=== PATIENT | female | born 1945 | race Caucasian/White ===

== ENCOUNTER 2017-10-23 02:41 | Inpatient (IN) | payer OTHER ==
[~2017-10-23] VITALS: Ht 162.6 cm; Wt 90.7 kg
[~2017-10-23 02:41] MED LIST: APAP500 PO; CALCIUM LACTAT100 MG; CO Q-1010 MG PO; ESGIC; ESGIC PLUS PO; EXCEDRIN CAPLE1 EACH PO; FLEXERIL PO; Fish Oil 1 PO; IBUPROFEN 200200 M1 PO; L-LYSINE500 M1 PO; MIRALAX17 GM PO; MIRALAX255 GM PO; MULTIVITAMINS PO; OSTEO BI-FLEX1 EAC1 PO; POTASSIUM GLUCO99 M1 PO; PRILOSEC 20 MG20 MG PO; TYLOPHEN500 MG PO; VICODIN 5-5001 EACH; VITAMIN D31000 UNI2 PO; ZOCOR 20 MG TAB20 M1 PO
[2017-10-23 02:42] VITALS: BP 160/84
[2017-10-23 03:04] LABS: ABSOLUTE EOSINOPHILS 0.1 thou/uL (0.0-0.7); ABSOLUTE LYMPHOCYTES 1.2 thou/uL (0.8-5.3); ABSOLUTE MONOCYTES 0.5 thou/uL (0.0-1.2); ABSOLUTE NEUTROPHILS 9.1 thou/uL (1.6-8.1); BASOPHILS 0.4 %; EOSINOPHILS 0.6 %; HEMATOCRIT 42.2 % (37.0-47.0); HEMOGLOBIN 14.3 gm/dL (12.0-15.0); MCHC 33.8 g/dL (28.0-37.0); MCV 85.9 fL (80.0-100.0); MONOCYTES 4.7 %; MPV 7.2 fl. (7.2-11.1); NUCLEATED RBCS 0 /100WBC; PLATELET COUNT* 304 thou/uL (150-400); POLYS 83.3 %; RBC 4.92 mil/uL (4.20-5.00); RDW-CV 13.3 % (10.5-14.5)
[2017-10-23 03:37] LABS: ANION GAP 11 mmol/L (7-16); BUN 10 mg/dL (7-18); CALCIUM 8.9 mg/dL (8.5-10.1); CHLORIDE 100 mmol/L (98-107); CO2 29 mmol/L (21-32); CREATININE 0.8 mg/dL (0.6-1.3); GLUCOSE 147 mg/dL (70-99); POTASSIUM 3.8 mmol/L (3.5-5.1); SODIUM 140 mmol/L (136-145)
[2017-10-23 03:44] LABS: ALBUMIN 3.8 g/dL (3.4-5.0); ALKALINE PHOSPHATASE 84 U/L (46-116); LIPASE 115 U/L (73-393); SGOT 33 U/L (15-37); SGPT 36 U/L (30-65); TOTAL BILIRUBIN 0.6 mg/dL (<0.1-1.0); TOTAL PROTEIN 7.3 g/dL (6.4-8.2); TROPONIN-I LEVEL <0.06 ng/mL (<0.06)
[2017-10-23 03:56] LABS: URINE BILIRUBIN NEGATIVE (Negative); URINE BLOOD 2+ (Negative); URINE CLARITY CLEAR; URINE COLOR YELLOW; URINE GLUCOSE-RANDOM NEGATIVE (Negative); URINE KETONES 1+ (Negative); URINE LEUKOCYTES-REFLEX NEGATIVE (Negative); URINE NITRITE-REFLEX NEGATIVE (Negative); URINE PROTEIN NEGATIVE (Negative); URINE SPECIFIC GRAVITY 1.015 (1.005-1.030); URINE UROBILINOGEN 0.2 E.U./dl (0.2-1.0)
[2017-10-23 04:09] LABS: CASTS None Seen /LPF (None Seen); CRYSTALS None Seen /LPF (None Seen); MUCUS 0-3 Light strn/LPF (None Seen); SQUAMOUS 0-3 Few /LPF (0-3); URINE WBC-REFLEX 0-5 Rare /HPF (0-5)
--- NOTE | 2017-10-23 04:17 | NUR ---
back from cat scan.
[2017-10-23 05:59] VITALS: BP 142/78
--- NOTE | 2017-10-23 08:03 | NUR ---
PATIENT ARRIVED TO UNIT AT 0605. ORIENTED TO ROOM AND STAFF. VITALS STABLE. RA. EDUCATED ABOUT FALL PREVENTION. UP SBA TO BSC. NG TO LIS. PHYSICIAN CONTACTED FOR PAIN MEDICATION, NO ORDERS YET RECEIVED. DAUGHTER AT BEDSIDE. STRESS INCONTIENT WHEN DRY HEAVING. SKIN INTACT. INSTRUCTED TO CALL FOR ASSISTANCE. NURSING WILL CONTINUE TO MONITOR.
[2017-10-23 08:04] VITALS: BP 166/87
--- NOTE | 2017-10-23 13:53 | EKG ---
[place] [address] ELECTROCARDIOGRAM REPORT Name: ANUP ALEX Room: [address] IN .R.#: [id number] Admission: 10/23/17 Attend Phys: Charli Echeverria Discharge: Date of : 45 Report #: [id number] THIS REPORT FOR: //name// [facility] [place] ED Test Date: 2017-10-23 Test Time: 03:23:45 Pat Name: ANUP ALEX Department: Room: [facility] Gender: F Crisis Counselor: FAHEEM : 1945 Requested By: Alex Manzano Order Number: [id number] MD: Sean Lquue Measurements Intervals [place] Rate: 88 P: 27 [place]: 174 QRS: 153 QRSD: 103 T: 36 QT: 405 QTc: 490 Interpretive Statements Sinus rhythm Right ventricular hypertrophy Borderline prolonged QT interval Compared to ECG 03/17/2017 10:23:35 no change Electronically Signed On 10-23-2017 13:53:49 CDT by Sean Luque [email or web address] <ELECTRONICALLY SIGNED> By: Sean Luque MD, [facility] 10/23/17 [id number] [id number] Sean Luque MD, [facility] /EPI
--- NOTE | 2017-10-23 15:23 | NUR ---
PT.LIVES WITH HER . HE IS DISABLED SO SHE CARES FOR HIM. SHE USES A CANE AT TIMES. SHE IS INDEPENDENT. STILL DRIVES-LIMITED DRIVING,SHE SAID. SHE COOKS,SHOPS,CLEANS,,ETCH. NO HX OF OR SNF. SHE HOPES HER PROBLEM CAN BE TAKEN CARE OF CONSERVATIVELY. DAUGHTER IS SUPPORTIVE AND AT BEDSIDE.
[2017-10-23 15:58] VITALS: BP 150/63
--- NOTE | 2017-10-23 16:35 | NUR ---
ASSUMED CARE OF PATIENT AFTER MORNING REPORT. ALERT AND ORIENTED X4. ASSESSMENT COMPLETED AND CHARTED. PATIENTS NG TUBE IS IN PLACE, PATENT AND ON LOW INTERMITTENT SUCTION. PAIN AND NAUSEA HAVE BEEN MANAGED WITH MEDICATIONS. FLUIDS INFUSING ORDRED. PATIENTS DAUGHTER HAS BEEN AT BEDSIDE THROUGHOUT SHIFT. PATIENT RESTING COMFORTABLY IN BED AT THIS TIME. HOURLY ROUNDS MAINTAINED. CALL LIGHT IS WITHIN REACH. NURSING WILL CONTINUE TO MONITOR.
[2017-10-23 20:00] VITALS: BP 143/69
[2017-10-24 04:07] VITALS: BP 126/44
[2017-10-24 04:20] LABS: ABSOLUTE LYMPHOCYTES 1.4 thou/uL (0.8-5.3); ABSOLUTE MONOCYTES 0.7 thou/uL (0.0-1.2); ABSOLUTE NEUTROPHILS 4.8 thou/uL (1.6-8.1); BASOPHILS 0.5 %; EOSINOPHILS 0.7 %; HEMATOCRIT 37.6 % (37.0-47.0); HEMOGLOBIN 12.6 gm/dL (12.0-15.0); LYMPHOCYTES 20.3 %; MCH 29.1 pg (26.0-34.0); MCHC 33.5 g/dL (28.0-37.0); MCV 86.9 fL (80.0-100.0); MONOCYTES 9.9 %; MPV 7.1 fl. (7.2-11.1); NUCLEATED RBCS 0 /100WBC; PLATELET COUNT* 262 thou/uL (150-400); POLYS 68.6 %; RBC 4.32 mil/uL (4.20-5.00); RDW-CV 13.2 % (10.5-14.5); WBC 6.9 thou/uL (4.0-11.0)
--- NOTE | 2017-10-24 04:29 | NUR ---
PATIENT ALERT AND ORIENTED. VITALS STABLE. RA. NG IN PLACE TO LIS. NPO. NEW IV PLACED IN LEFT FOREARM, FLUIDS INFUSING PER ORDER. UP SBA TO BSC. FENTANYL AND ZOFRAN GIVEN X 2. HOURLY ROUNDS. NURSING WILL CONTINUE TO MONITOR.
[2017-10-24 05:40] LABS: CALCIUM 8.3 mg/dL (8.5-10.1); CREATININE 0.7 mg/dL (0.6-1.3); POTASSIUM 3.9 mmol/L (3.5-5.1)
[2017-10-24 05:41] LABS: MAGNESIUM 2.3 mg/dL (1.8-2.4)
[2017-10-24 08:00] VITALS: BP 143/76
--- NOTE | 2017-10-24 12:00 | NUR ---
PATIENT CALLED NURSE TO ROOM. STATED SHE NOTICED HER RIGHT FOOT WAS MORE SWOLLEN THAN THE LEFT. AFTER EXAMINATION THIS NURSE DID VERIFY RIGHT FOOT IS MINIMALLY MORE SWOLLEN THAN THE LEFT, BUT FEELS NO OTHER ABNORMALITIES OR DEFORMITIES. PATIENT IS NOT COMPLAINING OF PAIN TO RIGHT FOOT. NURSING WILL CONTINUE TO MONITOR.
[2017-10-24 16:16] VITALS: BP 137/74
--- NOTE | 2017-10-24 16:20 | NUR ---
ASSUMED CARE OF PATIENT AFTER REPORT THIS MORNING. PATIENT AWAKE, ALERT, AND ORIENTED APPROPRIATELY. PHYSICAL ASSESSMENT COMPLETED AND CHARTED. COMPLAINED OF PAIN THIS SHIFT. GIVEN PRN AND SCHEDULED MEDICATIONS, SEE EMAR FOR DOCUMENTATION. VITAL SIGNS STABLE. OXYGEN SATURATION WITHIN NORMAL LIMITS ON ROOM AIR. NG TUBE IN PLACE TO LOW INTERMITTENT SUCTION. PRODUCING YELLOWISH BROWN GASTRIC FLUID. COMPLETED ABDOMINAL SERIES TODAY, SEE RESULTS IN DAILY REVIEW. PATIENT TRANSFERS AND AMBULATES WITH ASSISTANCE FROM STAFF. USES CALL LIGHT APPROPRIATELY. DENIES NEEDS AT THIS TIME. CALL LIGHT WITHIN REACH. NURSING WILL CONTINUE TO MONITOR.
[2017-10-24 20:15] VITALS: BP 144/80
[2017-10-25] VITALS: BP 137/55
[2017-10-25 03:55] LABS: ABSOLUTE EOSINOPHILS 0.1 thou/uL (0.0-0.7); ABSOLUTE LYMPHOCYTES 1.5 thou/uL (0.8-5.3); ABSOLUTE MONOCYTES 0.4 thou/uL (0.0-1.2); BASOPHILS 0.8 %; EOSINOPHILS 1.8 %; HEMATOCRIT 34.4 % (37.0-47.0); HEMOGLOBIN 11.4 gm/dL (12.0-15.0); LYMPHOCYTES 29.6 %; MCH 28.6 pg (26.0-34.0); MCHC 33.1 g/dL (28.0-37.0); MCV 86.6 fL (80.0-100.0); MONOCYTES 8.7 %; MPV 6.9 fl. (7.2-11.1); NUCLEATED RBCS 0 /100WBC; PLATELET COUNT* 237 thou/uL (150-400); POLYS 59.1 %; RBC 3.97 mil/uL (4.20-5.00)
[2017-10-25 04:11] LABS: CALCIUM 7.9 mg/dL (8.5-10.1); CREATININE 0.5 mg/dL (0.6-1.3); POTASSIUM 3.2 mmol/L (3.5-5.1)
--- NOTE | 2017-10-25 05:49 | NUR ---
UP WITH STAND BY ASSIST TO BEDSIDE COMMODE. ALERT AND ORIENTED X4. IVF INFUSING WITHOUT DIFFICULTY. NG PATENT WITH BROWN DRAINAGE. NO C/O N/V. IV AND PO PAIN MEDICATION GIVEN FOR ARTHRITIC AND ABD PAIN. PATIENT STATES SHE IS PASSING GAS. CALL LIGHT WITHIN REACH.
[2017-10-25 09:00] VITALS: BP 141/73
[2017-10-25 16:19] VITALS: BP 153/67
--- NOTE | 2017-10-25 21:12 | NUR ---
ASSUMED CARES OF PT AT 0700. PT IN BED, BED IN LOW LOCKED POSITION, CALL BUTTON AND PERSONAL ITEMS IN PT REACH. FALL PRECAUTIONS IN PLACE. PT A&O X4, VSS ON RA, AFEBRILE, PERRLA, SKIN INTACT, EDEMA IN RIGHT FOOT AND ANKLE 1+. NG TUBE LOW INTERMITTANT SUCTION, DARK BROWN LIQUID PRESENT IN CANNISTER. IV IN LEFT WRIST PATENT TO FLUIDS INFUSING. PT UP SBA, PT WALKED WITH WALKER AND PHYSICAL THERAPY. LCTAB, HRRR PER AUSCULTATION. PULSES RADIAL AND PEDAL WNL. PT DENIES N/V. PAIN PARTIALLY CONTROLLED WITH PAIN MEDS. ICE PACKS FOR KNEE DISCOMFORT. SCD'S WORN WHILE IN BED. ABD SOFT TO PALPATE. PT NPO THIS SHIFT, ICE CHIPS IN SMALL AMOUNTS. PT VERY NEEDY, USES CALL BUTTON OFTEN FOR ASSISTANCE AND WITH QUESTIONS. HOURLY ROUNDING COMPLETED. PT PROGRESSING TOWARDS GOAL. REPORT TO PUSH CONNECTOR ASSEMBLER FOR CONTINUED CARES. PT STABLE AT SHIFT CHANGE. TALKATIVE, SMILING. DIET UPGRADED TO CLEAR LIQUID PER DR. FUNK.
[2017-10-26] VITALS: BP 137/67
--- NOTE | 2017-10-26 05:32 | NUR ---
ALERT AND ORIENTED X4. TRANSFERS SELF TO BEDSIDE COMMODE WITHOUT DIFFICULTY. N/G CLAMPED WITH NO C/O N/V. TAKING SMALL SIPS OF CLEAR LIQUIDS. PATIENT STATED SHE HAS PASSED SOME GAS. USING IV PAIN MEDICATION TO HELP CONTROL ARTHRITIC PAIN. CALL LIGHT WITHIN REACH.
[2017-10-26 08:06] VITALS: BP 174/78
[2017-10-26 08:28] LABS: ABSOLUTE EOSINOPHILS 0.1 thou/uL (0.0-0.7); ABSOLUTE LYMPHOCYTES 1.2 thou/uL (0.8-5.3); ABSOLUTE MONOCYTES 0.4 thou/uL (0.0-1.2); BASOPHILS 0.8 %; EOSINOPHILS 2.1 %; HEMATOCRIT 38.4 % (37.0-47.0); LYMPHOCYTES 21.2 %; MCH 28.8 pg (26.0-34.0); MCHC 33.9 g/dL (28.0-37.0); MCV 85.1 fL (80.0-100.0); MONOCYTES 6.9 %; NUCLEATED RBCS 0 /100WBC; PLATELET COUNT* 286 thou/uL (150-400); RBC 4.51 mil/uL (4.20-5.00); RDW-CV 12.8 % (10.5-14.5); WBC 5.9 thou/uL (4.0-11.0)
[2017-10-26 08:37] LABS: CALCIUM 8.7 mg/dL (8.5-10.1); CREATININE 0.6 mg/dL (0.6-1.3); MAGNESIUM 2.1 mg/dL (1.8-2.4); PHOSPHORUS* 1.9 mg/dL (2.5-4.9); POTASSIUM 3.7 mmol/L (3.5-5.1)
--- NOTE | 2017-10-26 10:03 | NUR ---
ASSUMED CARES OF PT AT 0700 WITH SHIFT CHANGE REPORT. PT IN BED, BED IN LOW LOCKED POSITION, FALL PRECAUTIONS IN PLACE. CALL BUTTON AND PERSONAL ITEMS IN PT REACH. PT USES CALL BUTTON APPROPRIAELY OFTEN. PT A&O X4, HRRR PER AUSCULTATION, LCTAB, PT UP TO [facility] [place], SMALL FORMED BM THIS MORNING ROUNDS. RIGHT FOOT EDEMA +1 PITTING. SCD'S WORN APPROPRIATELY. VSS ON RA, AFEBRILE, PERRLA, SKIN INTACT WITH SCATTERED BRUISING. PAIN MEDS GIVEN FOR ARTHRITIC PAIN AND CHRONIC KNEE PAIN. PT UP SBA, WORKING WITH THERAPIES, AMBULATING HALLWAY. DIET UPGRADED TO FULL LIQUID DIET. NG TUBE CLAMPED PER SURGERY. LEFT WRIST IV PATENT TO FLUIDS, NS 100 ML/HR, MG+ 35 ML/HR. HOURLY ROUNDING CONTINUES. PT PROGRESSING TOWARDS GOAL. WILL CONTINUE TO MONITOR PT PROGRESS AND STATUS.
--- NOTE | 2017-10-26 10:12 | NUR ---
ORDER RECEIVED FOR "OT EVALUATION AND TREATMENT". COMPLETED CHART REVIEW, SPOKE WITH PHYSICAL THERAPY/RN AND PATIENT. PT AT MOD I LEVEL FOR AMBULATION. PT STATING THAT SHE DOES NOT FEEL THE NEED FOR OCCUPATIONAL THERAPY AT THIS TIME AND FEELS SHE CAN BATHE/DRESS SELF (NO A.E. NEEDED). WILL D/C FROM OCCUPATIONAL THERAPY [facility] AT THIS TIME.
[2017-10-26 15:44] VITALS: BP 178/76
[2017-10-26 20:00] VITALS: BP 125/57
--- NOTE | 2017-10-26 20:04 | NUR ---
this nurse assumes care of pt at 1930, pt is alert and oriented x4, sitting up in recliner chair with fluids infusing, pt is visiting with friend, pt voices no complaints/ concerns, pt reports having a small bm recently, denies n/v, pt has been up walking in hallway with standby assist
--- NOTE | 2017-10-26 20:54 | NUR ---
BEDSIDE REPORT TO VEGETABLE COOK FOR CONTINUED CARES. PT PROGRESSING TOWARDS GOAL. NG TUBE REMOVED, NO AVR, NO N/V. K+ REPLACED AND EFFECTIVE. PHOSPHORUS INFUSION CONTINUES, DIFFICULTY WITH IV ACCESS SLOWED INFUSION DOWN. PT UP AMBULATING HALLS WITH IV POLE, STEADY, SMILING, STATES SHE FEELS GOOD. MORE BM THIS SHIFT. HOURLY ROUNDING COMPLETED. VSS ON RA. PT COULD D/C HOME TOMORROW.
[2017-10-27 00:27] VITALS: BP 116/47
[2017-10-27 04:56] LABS: HEMATOCRIT 33.4 % (37.0-47.0); HEMOGLOBIN 11.4 gm/dL (12.0-15.0); MCH 29.1 pg (26.0-34.0); MCHC 34.1 g/dL (28.0-37.0); MCV 85.4 fL (80.0-100.0); MPV 7.5 fl. (7.2-11.1); RBC 3.91 mil/uL (4.20-5.00); RDW-CV 13.1 % (10.5-14.5); WBC 5.6 thou/uL (4.0-11.0)
--- NOTE | 2017-10-27 05:12 | NUR ---
pt continues progressing towards goals, pt ambulates in hallway with walker frequently, gait is steady, iv to left fa removed due to leakage, pt continues to complain of bilat leg, back, an hip pain, order received for PO pain meds, pt resting quietly at this time, bed in lowerst position, call light within reach
[2017-10-27 05:20] LABS: CALCIUM 8.4 mg/dL (8.5-10.1); CREATININE 0.6 mg/dL (0.6-1.3); MAGNESIUM 1.9 mg/dL (1.8-2.4); PHOSPHORUS* 3.2 mg/dL (2.5-4.9); POTASSIUM 3.6 mmol/L (3.5-5.1)
[2017-10-27 11:02] VITALS: BP 116/47
[2017-10-27 11:03] VITALS: BP 116/47
[2017-10-27] MEDS ORDERED: CEFUROXIME500 MG PO (11:07)
--- NOTE | 2017-10-27 12:11 | NUR ---
PT.WALKING IN HALLS WITH FRONT WHEEL WALKER. SHE SAID IT REALLY HELPS HER ARTHRITIS TO HAVE SOMETHING TO HELP SUPPORT HER WITH WALKING. REQUESTING A WALKER FOR HOME USE. OBTAINED ORDER FROM . FAXED FACE SHEET,ORDER AND H&P TO [facility]. SHE WILL DELIVER TO ROOM 108 PRIOR TO PT.DISCHARGING.
[2017-10-27 13:45] VITALS: BP 116/47
[2017-10-27 13:57] VITALS: BP 116/47
--- NOTE | 2017-10-27 13:58 | NUR ---
ALERT AND ORIENTED X4. UP AD ALEXA DURING AMBULATION WITH WALKER. NO IV TO DC AT DISCHARGE. DENIES PAIN AND NAUSEA. WALKER PROVIDED AT DISCHARGE. TOLERATING REGULAR DIET. ALL PERSONAL ITEMS LEFT WITH PATIENT. DISCHARGE INSTRUCTIONS, PRESCRIPTIONS, AND NEW MEDICATION INFORMATION SENT WITH PATIENT. VSS ON ROOM AIR. HOURLY ROUNDS HAVE BEEN MAINTAINED THROUGHOUT SHIFT. LEFT WITH SON VIA CAR.
[2017-12-16] MEDS ORDERED: ULTRAM 50MG TAB50 MG PO (08:58)
== END 2017-10-27 13:50 | disposition home or self-care (01) | DRG 389 ==
LOC: M.ERS 02:41 → M.TBA-ER 05:09 → M.ORTHSURG 05:09
PROVIDERS: Emergency Medicine Emergency Medical Services; Internal Medicine; Surgery; ADMIT Internal Medicine
DX: K56.50 Intestinal adhesions [bands], unspecified as to partial versus complete obstruction (principal); R65.10 Systemic inflammatory response syndrome (SIRS) of non-infectious origin without acute organ dysfunction; E87.0 Hyperosmolality and hypernatremia; N39.0 Urinary tract infection, site not specified; E86.0 Dehydration; K57.90 Diverticulosis of intestine, part unspecified, without perforation or abscess without bleeding; E78.5 Hyperlipidemia, unspecified; G43.909 Migraine, unspecified, not intractable, without status migrainosus; M19.90 Unspecified osteoarthritis, unspecified site; Z79.899 Other long term (current) drug therapy; Z90.49 Acquired absence of other specified parts of digestive tract; Z90.710 Acquired absence of both cervix and uterus; Z79.82 Long term (current) use of aspirin; Z88.8 Allergy status to other drugs, medicaments and biological substances; Z88.6 Allergy status to analgesic agent

== ENCOUNTER → 2017-11-11 | Outpatient (CLI) | payer OTHER ==
[~2017-11-11] MED LIST changes: +CEFUROXIME500 MG PO; +HYDROCODONE-AP1 EAC6 PO; +ULTRAM 50MG TAB50 MG PO
== END ==
LOC: M.RAD 09:42
DX: K56.609 Unspecified intestinal obstruction, unspecified as to partial versus complete obstruction (principal)

== ENCOUNTER 2017-12-22 10:02 | Observation (INO) | payer OTHER ==
[~2017-12-22] VITALS: Ht 165.1 cm; Wt 73.5 kg
--- NOTE | ~2017-12-22 | H ---
[address] [address] HISTORY AND PHYSICAL Name: ANUP ALEX Room: [address] Shaila Adam#: [id number] Admission: 12/22/17 Attend Phys: Lai Fleming DO Discharge: 12/23/17 Date of : 45 Report #: [id number] THIS REPORT FOR: //name// Please refer to the History and Physical performed in the physician's office. By: [id number] Records Staff VIANCA /JUSTO
[~2017-12-22 10:02] MED LIST changes: -HYDROCODONE-AP1 EAC6 PO
[2017-12-22 10:38] LABS: HEMATOCRIT 43.4 % (37.0-47.0); HEMOGLOBIN 14.5 gm/dL (12.0-15.0); MCH 29.3 pg (26.0-34.0); MCHC 33.5 g/dL (28.0-37.0); MCV 87.6 fL (80.0-100.0); MPV 7.1 fl. (7.2-11.1); RBC 4.96 mil/uL (4.20-5.00); RDW-CV 13.8 % (10.5-14.5); WBC 4.5 thou/uL (4.0-11.0)
[2017-12-22 10:57] LABS: CALCIUM 9.3 mg/dL (8.5-10.1); CREATININE 0.6 mg/dL (0.6-1.3); POTASSIUM 3.8 mmol/L (3.5-5.1)
[2017-12-22 11:02] LABS: TOTAL BILIRUBIN 0.6 mg/dL (<0.1-1.0); TOTAL PROTEIN 7.4 g/dL (6.4-8.2)
[2017-12-22 11:30] VITALS: BP 174/86
--- NOTE | 2017-12-22 18:26 | NUR ---
PATIENT ARRIVED TO UNIT AT 1545. ALERT AND ORIENTED X4. PATIENT IN SIGNIFICANT AMOUNT OF PAIN UPON ARRIVAL TO UNIT. DENIES NAUSEA. IV IS PATENT AND SALINE LOCKED. PATIENT HAS BEEN ORIENTED TO UNIT. VSS ON ROOM AIR. HOURLY ROUNDS HAVE BEEN MAINTAINED THROUGHOUT SHIFT. CALL LIGHT IS WITHIN REACH. NURSING WILL CONTINUE TO MONITOR.
--- NOTE | 2017-12-22 18:31 | NUR ---
ALERT AND ORIENTED X4. PAIN BEING MANAGED WITH IV PAIN MEDICATION. DENIES NAUSEA. IV IS PATENT AND SALINE LOCKED. LAP SITES X3 C/D/I. STRAIGHT CATHED PATIENT THIS SHIFT WITH 1300 OUTPUT. TOLERATING ICE CHIP ONLY AT THIS TIME. VSS ON ROOM AIR. HOURLY ROUNDS HAVE BEEN MAINTAINED THROUGHOUT SHIFT. CALL LIGHT IS WITHIN REACH. NURSING WILL CONTINUE TO MONITOR.
[2017-12-22 21:00] VITALS: BP 121/79
[2017-12-23 00:46] VITALS: BP 120/68
[2017-12-23 04:49] VITALS: BP 99/55
--- NOTE | 2017-12-23 04:55 | NUR ---
PATIENT ALERT AND ORIENTED X 4. VITALS STABLE. UP SBA. DENIES NAUSEA. PAIN CONTROLLED. ABDOMINAL DRESSING C/D/I. DAUGHTER AT BEDSIDE. PLANS TO BE DISCHARGED HOME TODAY. HOURLY ROUNS. SLEPT COMFORTABLY THROUGHT THE NIGHT. NURSING WILL CONTINUE TO MONITOR.
[2017-12-23 09:26] VITALS: BP 119/56
[2017-12-23 10:32] VITALS: BP 119/56
[2017-12-23] MEDS ORDERED: HYDROCODONE-AP1 EAC6 PO (10:47)
--- NOTE | 2017-12-23 11:07 | NUR ---
ASSUMED CARE OF PATIENT AFTER MORNING REPORT. ALERT AND ORIENTED X4. ASSESSMENT COMPLETED AND CHARTED. VSS ON ROOM AIR. PATIENT HAD NO COMPLAINTS OF NAUSEA OR HERI. PAIN WAS MANAGED WITH PAIN MEDICATION. PATIENTS DIET ADVANCED AND TOLERATED WELL. PATIENT SHOWERED THIS MORNING AND WAS READY FOR DISCHARGE. PATIENT DISCHARGED AT 1105. ALL PERSONAL BELONGINGS, PRESCRIPTIONS, AND DISCHARGE INFORMATION SENT WITH PATIENT.
--- NOTE | 2018-01-21 17:18 | OP ---
[address] [address] OPERATIVE REPORT Name: ANUP ALEX Room: [address] Shaila Adam#: [id number] Admission: 12/22/17 Attend Phys: Lai Fleming DO Discharge: 12/23/17 Date of : 45 Report #: [id number] THIS REPORT FOR: //name// CC: Lai Grant MD DATE OF SERVICE: 12/22/2017 REFERRING PHYSICIAN: Dr. Lizzette Petty and also Dr. Freeman Jimenez. PREOPERATIVE DIAGNOSES: Chronic abdominal pain and early satiety. POSTOPERATIVE DIAGNOSES: Chronic abdominal pain and early satiety plus intra-abdominal adhesions and recurrent umbilical hernia. PROCEDURE: Diagnostic laparoscopy with lysis of adhesions and umbilical hernia repair. SURGEON: Lai Fleming DO. OPERATING ROOM TECHNOLOGIST: Justin Dwyer DO. ANESTHESIA: General endotracheal. ESTIMATED BLOOD LOSS: Less than 20 mL. COMPLICATIONS: None. DESCRIPTION OF PROCEDURE: After obtaining proper consents and discussing risks and complications with the patient, she was taken to the operating room, laid on the supine position and administered general anesthesia. She was then prepped and draped in the usual fashion. A timeout was performed. We confirmed the appropriate patient and procedure. Preoperative antibiotics had been given. SCDs were in place. A Gorman catheter had been placed prior to prepping as well. We then made a small supraumbilical skin incision with a #11 scalpel blade. This was carried down through the skin into the subcutaneous tissue using electrocautery for hemostasis. Immediately into the subcutaneous tissues, we identified a fairly large hernia sac. The hernia sac was completely dissected free. The hernia defect was approximately 1.5 cm in diameter. We excised the hernia sac and then placed two 0 Prolene sutures in a [id number]-pbeac fashion through the fascia of the hernia defect in order to secure the Mag trocar, which was then inserted. Once inserted, insufflation was begun and once insufflation was complete, full visual inspection of the anterior abdominal organs was performed. This revealed some [place] [address] OPERATIVE REPORT Name: ANUP ALEX [address] [id number] Admission: 12/22/17 Attend Phys: Lai Fleming DO Discharge: 12/23/17 Date of : 45 Report #: [id number] quadrant and along the midline supraumbilically. These adhesions appeared to be just omentum. We did place another 5-mm trocar in the right upper quadrant. I was then able to use the camera from that angle and again visualized the same area of adhesions. We placed another 5-mm trocar in the right lower quadrant. We then replaced the camera into the periumbilical incision and took down the adhesions using electrocautery and blunt dissection. There did appear to be one area right up near the falciform ligament where the stomach was adherent to the omentum which was adherent to the abdominal wall and this was thought to possibly cause the patient's symptoms. These areas were completely released. We then explored the entire abdomen starting with visualizing the stomach, which all appeared normal. There was no evidence of any pathology externally on the stomach. We actually were able to identify the transverse colon, which was elevated and we were able to visualize the posterior stomach this way as well and found no abnormalities. I then ran the transverse colon all the way back to the cecum and right colon was identified and run down to the cecum which was far down in the pelvis. The cecum was fairly floppy and we did identify the appendix, which appeared completely normal. I then ran the small bowel from the ileocecal valve all the way back proximally to an area where the SMA was visualized as was the proximally third to fourth portion of the duodenum. This area was all quite free and we never really identify a ligament of Treitz. The bowel did not appear dilated or have any adhesions throughout the entirety of that small bowel. I then also explored the pelvis. The patient had neglected to tell us that she had a hysterectomy; however, there was no uterus present. There was some scar tissue in the area, consistent with previous hysterectomy. There were 1 or 2 filmy adhesions of the very redundant sigmoid colon to the area that I assumed was the vaginal cuff. Again, there were no other gross abnormalities identified. There were some minimal adhesions to the liver, consistent with the patient's previous cholecystectomy. Once this was complete, we elected to stop the procedure. The insufflation was stopped, all air was released. Trocars were removed. The umbilical fascial defect was then closed using the 2 previously placed 0 Prolene sutures plus 2 additional 0 Prolene sutures in a [id number]-lcfok fashion. The subcutaneous tissues were injected with 0.5% Marcaine and then the skin was closed using 4-0 Monocryl subcuticular stitches. Mastisol, Steri-Strips, sterile OpSite and pressure dressings were placed. The patient tolerated the procedure well, was awakened in the operating room and transported to the recovery room in stable condition. <ELECTRONICALLY SIGNED> By: Lai Fleming, 01/21/18 1718 1417 [id number] Fleming DO /wilfredo
== END 2017-12-23 11:05 | disposition home or self-care (01) ==
LOC: M.SUR 10:02 → M.PRE 10:39 → EDSTATUS 11:34 → M.SUR 11:34 → M.PRE 11:39 → EDSTATUS 15:52 → M.SUR 16:00 → M.ORTHSURG 16:48
PROVIDERS: ADMIT Surgery
DX: K42.9 Umbilical hernia without obstruction or gangrene (principal); K56.609 Unspecified intestinal obstruction, unspecified as to partial versus complete obstruction; K66.0 Peritoneal adhesions (postprocedural) (postinfection); M19.90 Unspecified osteoarthritis, unspecified site; G89.29 Other chronic pain; R10.9 Unspecified abdominal pain; K90.49 Malabsorption due to intolerance, not elsewhere classified; Z98.890 Other specified postprocedural states; Z90.722 Acquired absence of ovaries, bilateral; Z92.89 Personal history of other medical treatment

== ENCOUNTER 2021-09-24 16:25 | Inpatient (IN) | payer OTHER ==
[~2021-09-24] VITALS: Ht 162.6 cm; Wt 71.7 kg
--- NOTE | ~2021-09-24 | EMS ---
[place] [id number] EMS Patient Care Report Name: ANUP ALEX Room: [address] IN [facility]#: [id number] Admission: 09/24/21 Attend Phys: Jeanette Mejia MD Discharge: Date of : 45 Report #: [id number] THIS REPORT FOR: //name// Report Transmitted: 09/25/2021 10:06 EMS Care Summary [facility] [employer] [facility] Incident [id number] @ 09/24/2021 15:26 Incident Location [address] [place] [address] Patient ANUP ALEX Female, 76 Years 1945 Patient Address [address] [place] [address] Patient History Other,Irritable Bowel Syndrome,Vertigo, Patient Allergies Valium, Chief Complaint Abdominal pain 03/12 Disposition Transported No Lights/[place] Reason Sick Person Transported To [facility] Narrative Upon arrival the patient was located sitting in a chair in her kitchen. The patient was complaining of severe abdominal pain with nausea and vomiting. She advised that she had a history of bowl blockages that would cause her pain and nausea. She stated it started last night and had been getting worse. She stated she had been taking Zofran and it had been helping with some of the vomiting but she still felt nauseated. She believed she was dehydrated. Baseline vitals [place] [address] [address] EMS Patient Care Report Name: ANUP ALEX Room: [address] IN .R.#: [id number] Admission: 09/24/21 Attend Phys: Jeanette Mejia MD Discharge: Date of : 45 Report #: [id number] were obtained and the patient requested transport to [facility]. The patient's abdomen was distended in the lower Quadrants and she was complaining of pain in the left lower quadrant rating the pain 8/10. The patient was unable to walk due to pain and weakness. She was placed on the stair chair and taken to the EMS cot waiting at the end of her steps. The patient was transported to [facility] without incident. Initial Vitals @16:01MI Suspected: false @16:17P: 88,R: 18,BP: 147/75,SpO2: 99, @16:09P: 91,R: 18,BP: 151/82,SpO2: 99, @15:49P: 106,R: 18,BP: 144/78,SpO2: 99, @15:59P: 89,R: 18,BP: 137/73,SpO2: 99, @15:37BP: 142/88,Pain: 8/10,GCS: 15,Glucose: 132,SpO2: 95, @16:04Pain: 5/10,GCS: 15, @16:13Pain: 7/10,GCS: 15, Impression Abdominal Pain Procedures @15:37 ALS Assessment Response: UnchangedSucceeded @15:51 IV Therapy - Normal Saline (.9% NaCl) - Cold 600cc (20 ga) Site: Antecubital-Left Response: UnchangedSucceeded @15:54 Ondansetron - 4 Milligrams (mg) - Intramuscular (IM) Response: Improved @15:56 Fentanyl - 50 Micrograms (mcg) - Intravenous (IV) Response: Improved @16:14 Fentanyl - 50 Micrograms (mcg) - Intravenous (IV) Response: Improved @16:01 12-Lead ECG @15:52 12-Lead ECG @15:58 12-Lead ECG Timeline 15:26,Call Received 15:26,Dispatched 15:26,En Route 15:34,Initial Responder On Scene 15:34,On Scene 15:34,At Patient 15:37,ALS Assessment,Response: UnchangedSucceeded, 15:37,BP: 142/88 M,PULSE: ,RR: R,SPO2: 95 Ox,ETCO2: ,B,PAIN: 8,GCS: 15, 15:49,BP: 144/78 M,PULSE: 106,RR: 18 R,SPO2: 99 Ox,ETCO2: ,BG: ,PAIN: ,GCS: , 15:51,IV Therapy - Normal Saline (.9% NaCl) - Cold 600cc 20 ga Site: Antecubital-Left,Response: UnchangedSucceeded, 15:52,12-Lead ECG, [place] [address] EMS Patient Care Report Name: ISAIANUP L Room: [address]#: [id number] Admission: 09/24/21 Attend Phys: Jeanette Mejia MD Discharge: Date of : 45 Report #: [id number] 15:53,Depart Scene 15:54,Ondansetron - 4 Milligrams (mg) - Intramuscular (IM),Response: Improved 15:56,Fentanyl - 50 Micrograms (mcg) - Intravenous (IV),Response: Improved 15:58,12-Lead ECG, 15:59,BP: 137/73 M,PULSE: 89,RR: 18 R,SPO2: 99 Ox,ETCO2: ,BG: ,PAIN: ,GCS: , 16:01,12-Lead ECG, 16:01,BP: / M,PULSE: ,RR: R,SPO2: Ox,ETCO2: ,BG: ,PAIN: ,GCS: , 16:04,BP: / M,PULSE: ,RR: R,SPO2: Ox,ETCO2: ,BG: ,PAIN: 5,GCS: 15, 16:09,BP: 151/82 M,PULSE: 91,RR: 18 R,SPO2: 99 Ox,ETCO2: ,BG: ,PAIN: ,GCS: , 16:13,BP: / M,PULSE: ,RR: R,SPO2: Ox,ETCO2: ,BG: ,PAIN: 7,GCS: 15, 16:14,Fentanyl - 50 Micrograms (mcg) - Intravenous (IV),Response: Improved 16:17,BP: 147/75 M,PULSE: 88,RR: 18 R,SPO2: 99 Ox,ETCO2: ,BG: ,PAIN: ,GCS: , 16:22,At Destination 16:32,Transfer Patient 17:00,Call Closed 17:00,In District Disclaimer v1.1 Copyright 2021 [employer] This EMS Care Summary contains data elements from the applicable legal record (which may be displayed differently). It is designed to provide pertinent information for the following purposes: continuity of care, clinical quality, and state data reporting. The complete legal record is available to ED staff and administrators of the receiving hospital in ES's Patient Tracker. All data is provided "as is."
[~2021-09-24 16:25] MED LIST changes: +HYDROCODONE-AP1 EAC6 PO
[2021-09-24 16:30] VITALS: BP 142/70
[2021-09-24 16:51] LABS: HEMATOCRIT 39.9 % (37.0-47.0); HEMOGLOBIN 13.4 gm/dL (12.0-15.0); MCH 30.2 pg (26.0-34.0); MCHC 33.7 g/dL (28.0-37.0); MCV 89.8 fL (80.0-100.0); MPV 6.7 fl. (7.2-11.1); NUCLEATED RBCS 0 /100WBC; PLATELET COUNT* 264 thou/uL (150-400); RBC 4.44 mil/uL (4.20-5.00); RDW-CV 14.1 % (10.5-14.5); WBC 5.4 thou/uL (4.0-11.0)
[2021-09-24 17:02] LABS: CALCIUM 7.5 mg/dL (8.5-10.1); CREATININE 0.7 mg/dL (0.6-1.3)
[2021-09-24 17:07] LABS: ALBUMIN 3.1 g/dL (3.4-5.0); TOTAL BILIRUBIN 0.6 mg/dL (<0.1-1.0)
[2021-09-24 17:49] LABS: ABSOLUTE LYMPHOCYTES 0.3 thou/uL (0.8-5.3); ABSOLUTE MONOCYTES 0.3 thou/uL (0.0-1.2); ABSOLUTE NEUTROPHILS 4.8 thou/uL (1.6-8.1); PLATELET ESTIMATE ADEQUATE
[2021-09-24 19:16] LABS: URINE BILIRUBIN NEGATIVE (Negative); URINE BLOOD 2+ (Negative); URINE CLARITY CLEAR; URINE COLOR YELLOW; URINE GLUCOSE-RANDOM NEGATIVE (Negative); URINE KETONES 2+ (Negative); URINE LEUKOCYTES-REFLEX NEGATIVE (Negative); URINE NITRITE-REFLEX NEGATIVE (Negative); URINE PROTEIN NEGATIVE (Negative); URINE UROBILINOGEN 0.2 E.U./dl (0.2-1.0)
[2021-09-24 19:56] LABS: BACTERIA-REFLEX 1-9 Few /HPF (None Seen); CASTS None Seen /LPF (None Seen); CRYSTALS None Seen /LPF (None Seen); SQUAMOUS 4-10 Moderate /LPF (0-3); URINE RBC 3-10 Few /HPF (0-2); URINE WBC-REFLEX 0-5 Rare /HPF (0-5)
[2021-09-25 00:59] VITALS: BP 134/64
[2021-09-25 01:09] VITALS: BP 119/72
[2021-09-25 04:17] VITALS: BP 121/72
[2021-09-25 04:17] LABS: HEMATOCRIT 39.4 % (37.0-47.0); HEMOGLOBIN 13.2 gm/dL (12.0-15.0); MCH 30.2 pg (26.0-34.0); MCHC 33.5 g/dL (28.0-37.0); MPV 6.8 fl. (7.2-11.1); RBC 4.38 mil/uL (4.20-5.00); RDW-CV 13.8 % (10.5-14.5); WBC 5.2 thou/uL (4.0-11.0)
[2021-09-25 04:35] LABS: ALBUMIN 2.9 g/dL (3.4-5.0); CALCIUM 7.7 mg/dL (8.5-10.1); CREATININE 0.7 mg/dL (0.6-1.3); POTASSIUM 3.3 mmol/L (3.5-5.1); TOTAL BILIRUBIN 0.5 mg/dL (<0.1-1.0); TOTAL PROTEIN 5.8 g/dL (6.4-8.2)
--- NOTE | 2021-09-25 09:15 | EKG ---
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: : 1945 Requested By: Temo Cha Order Number: [id number] MD: Sean Luque Measurements Intervals [place] Rate: 89 P: 38 [place]: 158 QRS: 65 QRSD: 116 T: 24 QT: 363 QTc: 442 Interpretive Statements Sinus rhythm Probable left atrial enlargement Incomplete right bundle branch block Low voltage, precordial leads Baseline wander in lead(s) V3 Compared to ECG 10/23/2017 03:23:45 Low QRS voltage now present Electronically Signed On 09-25-2021 8:57:53 [employer] TEST[employer] by Sean Luque [email or web address] <ELECTRONICALLY SIGNED> By: Sean Luque MD, [facility] 09/25/21 0857 41 41 Sean Luque MD, [facility] /EPI
[2021-09-25 16:06] LABS: GLYCOHEMOGLOBIN (HGB A1C) 5.7 % (4.8-5.6)
[2021-09-25 17:00] VITALS: BP 91/40
[2021-09-25 21:20] VITALS: BP 122/54
[2021-09-26 01:52] VITALS: BP 112/63
[2021-09-26 04:18] LABS: HEMOGLOBIN 12.1 gm/dL (12.0-15.0); MCH 29.6 pg (26.0-34.0); MCHC 32.8 g/dL (28.0-37.0); MCV 90.4 fL (80.0-100.0); MPV 6.9 fl. (7.2-11.1); RBC 4.1 mil/uL (4.20-5.00); RDW-CV 13.7 % (10.5-14.5); WBC 3.3 thou/uL (4.0-11.0)
[2021-09-26 04:39] LABS: ALBUMIN 2.9 g/dL (3.4-5.0); CALCIUM 7.4 mg/dL (8.5-10.1); CREATININE 0.7 mg/dL (0.6-1.3); POTASSIUM 3.6 mmol/L (3.5-5.1); TOTAL BILIRUBIN 0.4 mg/dL (<0.1-1.0); TOTAL PROTEIN 5.7 g/dL (6.4-8.2)
[2021-09-26 05:55] VITALS: BP 110/56
[2021-09-26 08:00] VITALS: BP 138/58
[2021-09-26 14:28] VITALS: BP 126/69
[2021-09-26 18:24] VITALS: BP 114/53
[2021-09-26 20:45] VITALS: BP 127/68
[2021-09-27 01:49] VITALS: BP 111/57
[2021-09-27 06:02] VITALS: BP 120/52
[2021-09-27 08:05] VITALS: BP 125/68
[2021-09-27] MEDS ORDERED: CIPRO500 M1 PO (13:52)
[2021-09-27] MEDS ORDERED: METRONIDAZOLE500 M4 PO (13:52)
[2021-09-27 14:18] VITALS: BP 125/68
[2021-09-27 15:31] VITALS: BP 125/68
== END 2021-09-27 15:33 | disposition home or self-care (01) | DRG 372 ==
LOC: M.ERS 16:25 → M.TBA-ER 17:43 → M.2W 17:43
PROVIDERS: Family Medicine; ADMIT Internal Medicine; ATTEND Internal Medicine
PROC: 0DJ08ZZ Inspection of Upper Intestinal Tract, Via Natural or Artificial Opening Endoscopic (ICD-10-PCS; principal; 2021-09-27)
DX: A04.9 Bacterial intestinal infection, unspecified (principal); E44.1 Mild protein-calorie malnutrition; K57.32 Diverticulitis of large intestine without perforation or abscess without bleeding; N17.9 Acute kidney failure, unspecified; E87.6 Hypokalemia; K42.9 Umbilical hernia without obstruction or gangrene; G89.29 Other chronic pain; K44.9 Diaphragmatic hernia without obstruction or gangrene; R09.81 Nasal congestion; K21.9 Gastro-esophageal reflux disease without esophagitis; Z20.822 Contact with and (suspected) exposure to COVID-19; Z68.27 Body mass index [BMI] 27.0-27.9, adult; Z90.710 Acquired absence of both cervix and uterus; Z90.49 Acquired absence of other specified parts of digestive tract; Z79.899 Other long term (current) drug therapy; Z88.5 Allergy status to narcotic agent; Z88.8 Allergy status to other drugs, medicaments and biological substances; Z79.1 Long term (current) use of non-steroidal anti-inflammatories (NSAID)